=== PATIENT | male | born 1955 | race Asian ===

== ENCOUNTER 2016-11-05 07:30 | Outpatient (CLI) | payer OTHER | END 2016-11-05 23:59 | DX: Z00.00 Encounter for general adult medical examination without abnormal findings (principal); E78.5 Hyperlipidemia, unspecified; Z12.5 Encounter for screening for malignant neoplasm of prostate ==

== ENCOUNTER 2017-11-05 08:08 | Outpatient (CLI) | payer OTHER ==
[2017-11-05 13:07] LABS: ALBUMIN 3.9 g/dL (3.2-5.5); ALBUMIN/GLOBULIN RATIO 1.2 (1.0-2.2); ALKALINE PHOSPHATASE 35 IU/L (42-121); ALT ALANINE AMINOTRANSFERASE 35 IU/L (10-60); AST ASPARTATE AMINOTRANSFERASE 28 IU/L (10-42); BILIRUBIN,TOTAL 0.7 mg/dL (0.2-1.0); BUN - BLOOD UREA NITROGEN 16 mg/dL (6-20); CALCIUM 8.8 mg/dL (8.5-10.3); CARBON DIOXIDE - CO2 29 mmol/L (21-32); CHLORIDE 101 mmol/L (101-111); CHOL/HDL RATIO 3.2 (<5.0); CHOLESTEROL 159 mg/dL; CREATININE 0.6 mg/dL (0.6-1.2); GFR - MDRD 137 (>89); GLUCOSE 108 mg/dL (70-100); HDL CHOLESTEROL 49 mg/dL; LDL CHOLESTEROL,CALCULATED 90 mg/dL; LDL/HDL RATIO 1.8 (<3.6); SODIUM 136 mmol/L (135-145); TOTAL PROTEIN 7.2 g/dL (6.7-8.2); VLDL CHOLESTEROL 20 mg/dL
== END 2017-11-05 08:09 | disposition home or self-care (01) ==
LOC: LAB.WCP 08:08
PROVIDERS: ATTEND Family Medicine
DX: M77.50 Other enthesopathy of unspecified foot and ankle (principal); R60.9 Edema, unspecified; E78.9 Disorder of lipoprotein metabolism, unspecified
CPT/HCPCS: 36415; 80053; 80061; 83721; 84153

== ENCOUNTER 2018-06-27 09:00 | Outpatient (CLI) | payer OTHER ==
[2018-06-27 12:45] LABS: BASOPHILS # (AUTO) 0.1 10^3/uL (0.0-0.1); BASOPHILS % (AUTO) 1.1 %; EOSINOPHILS # (AUTO) 0.5 10^3/uL (0.0-0.7); EOSINOPHILS % (AUTO) 7.1 %; HGB - HEMOGLOBIN 14.1 g/dL (14.0-18.0); LYMPHOCYTES % (AUTO) 28.7 %; MEAN CORPUSCULAR HEMOGLOBIN 31.3 pg (27.0-31.0); MEAN CORPUSCULAR HGB CONC 33.5 g/dL (32.0-36.0); MEAN CORPUSCULAR VOLUME 93.3 fL (80.0-94.0); MEAN PLATELET VOLUME 7.9 fL (7.4-11.4); MONOCYTES # (AUTO) 0.7 10^3/uL (0.0-1.0); MONOCYTES % (AUTO) 9.7 %; NEUTROPHILS # (AUTO) 3.7 10^3/uL (1.5-6.6); NEUTROPHILS % (AUTO) 53.4 %; PLT - PLATELET COUNT 355 10^3/uL (130-450)
[2018-06-27 13:27] LABS: ALBUMIN 4.1 g/dL (3.2-5.5); ALBUMIN/GLOBULIN RATIO 1.4 (1.0-2.2); BILIRUBIN,TOTAL 0.7 mg/dL (0.2-1.0); CALCIUM 9.4 mg/dL (8.5-10.3); CREATININE 0.3 mg/dL (0.6-1.2)
== END 2018-06-27 23:59 | disposition home or self-care (01) ==
LOC: LAB.WCP 09:00
PROVIDERS: ATTEND Family Medicine
DX: R60.9 Edema, unspecified (principal); E66.3 Overweight; E78.5 Hyperlipidemia, unspecified
CPT/HCPCS: 36415; 80053; 85025

== ENCOUNTER 2018-07-25 14:20 | Outpatient (CLI) | payer OTHER ==
[2018-07-25 14:39] LABS: BASOPHILS # (AUTO) 0.1 10^3/uL (0.0-0.1); BASOPHILS % (AUTO) 1.2 %; EOSINOPHILS # (AUTO) 0.4 10^3/uL (0.0-0.7); HGB - HEMOGLOBIN 14.1 g/dL (14.0-18.0); LYMPHOCYTES # (AUTO) 2.7 10^3/uL (1.5-3.5); LYMPHOCYTES % (AUTO) 32.7 %; MEAN CORPUSCULAR HEMOGLOBIN 30.8 pg (27.0-31.0); MEAN CORPUSCULAR HGB CONC 33.3 g/dL (32.0-36.0); MEAN CORPUSCULAR VOLUME 92.7 fL (80.0-94.0); MEAN PLATELET VOLUME 7.2 fL (7.4-11.4); MONOCYTES # (AUTO) 0.9 10^3/uL (0.0-1.0); MONOCYTES % (AUTO) 10.5 %; NEUTROPHILS # (AUTO) 4.1 10^3/uL (1.5-6.6); NEUTROPHILS % (AUTO) 50.6 %; PLT - PLATELET COUNT 336 10^3/uL (130-450); RED BLOOD COUNT 4.56 10^6/uL (4.70-6.10); RED CELL DISTRIBUTION WIDTH 12.7 % (12.0-15.0); WHITE BLOOD COUNT 8.2 x10^3/uL (4.8-10.8)
[2018-07-25 14:50] LABS: ALBUMIN 4.2 g/dL (3.2-5.5); ALBUMIN/GLOBULIN RATIO 1.1 (1.0-2.2); BILIRUBIN,TOTAL 0.7 mg/dL (0.2-1.0); CREATININE 0.6 mg/dL (0.6-1.2)
[2018-07-25] MEDS ORDERED: IOVERSOL 320 100 ML VIAL IVP ONE ×2 (15:28→16:06)
--- NOTE | 2018-07-25 17:02 | CT Report ---
Reason: ABDOMINAL PAIN, RIGHT LOWER QUADRANT, HEMATURIA Procedure Date: 07/25/2018 Accession Number: [id number] / [id number] Procedure: CT - Abdomen/Pelvis W/WO CPT Code: FULL RESULT: EXAM: CT ABDOMEN WITHOUT AND WITH CONTRAST EXAM DATE: 07/25/2018 04:18 PM. HISTORY: ABDOMINAL PAIN, RIGHT LOWER QUADRANT, HEMATURIA. COMPARISON: 12/14/2009. TECHNIQUE: Routine helical CT imaging was performed through the abdomen before and after administration of IV contrast: OPTI 320 100mL. Enteric contrast: No. Reconstruction: Coronal and sagittal. In accordance with CT protocol optimization, one or more of the following dose reduction techniques were utilized for this exam: automated exposure control, adjustment of mA and/or KV based on patient size, or use of iterative reconstructive technique. FINDINGS: ABDOMEN: Right Kidney/Ureter: No calculi. Single ureter with normal anatomic course. No hydronephrosis. No urothelial lesions identified. No renal mass. Left Kidney/Ureter: No calculi. Single ureter with normal anatomic course. No hydronephrosis. No urothelial lesions identified. No renal mass. Bladder: Unremarkable. No obvious lesions or masses. No abnormal thickening seen. Lung Bases: Incompletely included lower lungs are grossly clear. Heart size is within normal limits. No basilar effusions. Liver: Unremarkable. Gallbladder/Bile Ducts: Gallbladder is unremarkable. Biliary tree is normal caliber. Spleen: Unremarkable. Pancreas: Unremarkable. Adrenal Glands: Unremarkable. Peritoneum/Mesentery/Bowel: No free intraabdominal fluid, free air, or collection. No intestinal obstruction or inflammation. Colonic diverticulosis is present. The appendix is within normal limits. Lymph nodes: No mesenteric, periportal, or retroperitoneal lymphadenopathy. Retroperitoneum: Abdominal aorta is nonaneurysmal. Portal vein is patent. Hepatic veins are patent. PELVIS: Prostate ispresent. No pelvic lymphadenopathy. No free intrapelvic fluid. Bones: No suspicious osseous lesions. IMPRESSION: No CT urographic abnormalities. Diverticulosis without diverticulitis. RADIA
== END 2018-07-25 14:21 | disposition home or self-care (01) ==
LOC: LAB 14:20 → DI 14:21
PROVIDERS: ATTEND Family Medicine
DX: R10.31 Right lower quadrant pain (principal); R31.9 Hematuria, unspecified; K57.30 Diverticulosis of large intestine without perforation or abscess without bleeding
CPT/HCPCS: 36415; 74178; 80053; 85025; Q9967

== ENCOUNTER 2018-07-31 14:53 | Outpatient (CLI) | payer OTHER ==
[2018-07-31 19:12] LABS: BILIRUBIN,URINE NEGATIVE (NEGATIVE); GLUCOSE, URINE (UA) NEGATIVE (NEGATIVE); KETONES,URINE (UA) NEGATIVE (NEGATIVE); LEUKOCYTE ESTERASE, URINE NEGATIVE (NEGATIVE); NITRITE,URINE NEGATIVE (NEGATIVE); OCCULT BLOOD,URINE NEGATIVE (NEGATIVE); PROTEIN,URINE NEGATIVE (NEGATIVE); UROBILINOGEN,URINE 0.2 (NORMAL) E.U./dL (NORMAL)
[2018-07-31 19:23] LABS: BACTERIA,URINE Rare /HPF (None Seen); CLARITY,URINE CLEAR (CLEAR); RBC,URINE 0-5 /HPF (0-5); SQUAMOUS EPITHELIAL CELL,UR RARE Squamous (<= Few)
== END 2018-07-31 23:59 | disposition home or self-care (01) ==
LOC: LAB.WCP 14:53
PROVIDERS: ATTEND Family Medicine
DX: R31.9 Hematuria, unspecified (principal)
CPT/HCPCS: 81001

== ENCOUNTER 2018-10-08 16:38 | Outpatient (CLI) | payer OTHER ==
--- NOTE | 2018-10-09 08:48 | XRAY Report ---
Reason: KNEE PAIN,RIGHT Procedure Date: 10/08/2018 Accession Number: [id number] / [id number] Procedure: XR - Knee 2 View RT CPT Code: FULL RESULT: EXAM: RIGHT KNEE RADIOGRAPHY EXAM DATE: 10/08/2018 05:16 PM. CLINICAL HISTORY: Knee pain, right. COMPARISON: None. TECHNIQUE: 3 views. FINDINGS: Bones: Normal. No fractures or bone lesions. Joints: Mild degenerative spurring of the tibial spines and superior and inferior poles of the patella. Small suprapatellar effusion. No dislocation or subluxation. Soft Tissues: Mild anterior soft tissue swelling anterior-inferior to the patella. IMPRESSION: 1. Mild degenerative changes with small suprapatellar effusion. 2. Anterior soft tissue swelling inferior to the patella could indicate prepatellar bursitis. RADIA
== END 2018-10-08 16:39 | disposition home or self-care (01) ==
LOC: DI 16:38
PROVIDERS: ATTEND Family Medicine
DX: M17.11 Unilateral primary osteoarthritis, right knee (principal); M25.461 Effusion, right knee

== ENCOUNTER 2018-11-18 09:12 | Outpatient (CLI) | payer OTHER ==
[2018-11-18 13:06] LABS: BASOPHILS # (AUTO) 0.1 10^3/uL (0.0-0.1); BASOPHILS % (AUTO) 1.2 %; EOSINOPHILS # (AUTO) 0.7 10^3/uL (0.0-0.7); EOSINOPHILS % (AUTO) 8.5 %; LYMPHOCYTES % (AUTO) 36.1 %; MEAN CORPUSCULAR HEMOGLOBIN 30.2 pg (27.0-31.0); MEAN CORPUSCULAR HGB CONC 32.5 g/dL (32.0-36.0); MEAN PLATELET VOLUME 8.3 fL (7.4-11.4); MONOCYTES # (AUTO) 0.8 10^3/uL (0.0-1.0); MONOCYTES % (AUTO) 9.4 %; NEUTROPHILS # (AUTO) 3.8 10^3/uL (1.5-6.6); NEUTROPHILS % (AUTO) 44.8 %; PLT - PLATELET COUNT 343 10^3/uL (130-450); RED BLOOD COUNT 4.63 10^6/uL (4.70-6.10); RED CELL DISTRIBUTION WIDTH 12.6 % (12.0-15.0); WHITE BLOOD COUNT 8.4 x10^3/uL (4.8-10.8)
[2018-11-18 13:16] LABS: ALBUMIN/GLOBULIN RATIO 1.1 (1.0-2.2); ALKALINE PHOSPHATASE 45 IU/L (42-121); ALT ALANINE AMINOTRANSFERASE 29 IU/L (10-60); AST ASPARTATE AMINOTRANSFERASE 27 IU/L (10-42); BILIRUBIN,TOTAL 0.9 mg/dL (0.2-1.0); BUN - BLOOD UREA NITROGEN 14 mg/dL (6-20); CALCIUM 9.4 mg/dL (8.5-10.3); CARBON DIOXIDE - CO2 30 mmol/L (21-32); CHLORIDE 98 mmol/L (101-111); CHOL/HDL RATIO 3.1 (<5.0); CHOLESTEROL 183 mg/dL; CREATININE 0.7 mg/dL (0.6-1.2); GFR - MDRD 115 (>89); GLUCOSE 104 mg/dL (70-100); HDL CHOLESTEROL 59 mg/dL; LDL CHOLESTEROL,CALCULATED 109 mg/dL; LDL/HDL RATIO 1.8 (<3.6); SODIUM 137 mmol/L (135-145); TOTAL PROTEIN 7.5 g/dL (6.7-8.2); VLDL CHOLESTEROL 15 mg/dL
[2018-11-18 13:19] LABS: CREATININE,URINE 138.3 mg/dL; MICROALBUM/CREATININE RATIO,UR 2.9 ug/mg (<30.0); MICROALBUMIN,URINE 0.4 mg/dL (0-300.0)
[2018-11-18 13:27] LABS: HB2 TOTAL 15.3 g/dL; HEMOGLOBIN A1C 0.48 g/dL
== END 2018-11-18 09:13 | disposition home or self-care (01) ==
LOC: LAB.WCP 09:12
PROVIDERS: ATTEND Family Medicine
DX: E78.5 Hyperlipidemia, unspecified (principal); E66.3 Overweight
CPT/HCPCS: 36415; 80053; 80061; 82043; 82570; 83036; 83721; 84443; 85025

== ENCOUNTER 2020-06-25 12:39 | Outpatient (CLI) | payer OTHER ==
--- NOTE | 2020-06-25 14:57 | Ultrasound Report ---
PROCEDURE: Ext Limited Non Vascular INDICATIONS: L LEG PAIN TECHNIQUE: Real-time scanning was performed of the area of pain along the posterior lateral catheter , with image documentation. COMPARISON: None. FINDINGS: Underlying the area of palpable abnormality is a circumscribed hypoechoic mass with subtle internal vascularity connected to multiple superficial subcutaneous vessels. This measures 1.1 x 0.7 x 0.9 cm. There are multiple prominent superficial veins suggestive of varices noted adjacently. IMPRESSION: Findings most consistent with a focal superficial venous thrombosis measuring up to 1.1 cm in greates t diameter. Lower extremity varices. Reviewed by: Ras Carmona DO on 06/25/2020 1:56 PM [facility] Approved by: Ras Carmona DO on 06/25/2020 1:56 PM [place] Station ID: [id number]
--- NOTE | 2020-06-25 15:19 | XRAY Report ---
PROCEDURE: Foot 2 View LT INDICATIONS: L LEG PAIN TECHNIQUE: 2 views of the foot were acquired. COMPARISON: None FINDINGS: Bones: No fractures or dislocations. No suspicious bony lesions. Tibiotalar degenerative changes. Mild degenerative changes of the first metatarsophalangeal joint. Soft tissues: No tibiotalar joint effusion. Spurring of the calcaneus at the plantar fascial and Ach illes insertions. Mild soft tissue swelling of the ankle and foot. IMPRESSION: No acute osseous abnormality. Reviewed by: Ras Carmona DO on 06/25/2020 2:18 PM [place] Approved by: Ras Carmona DO on 06/25/2020 2:18 PM [place] Station ID: [id number]
--- NOTE | 2020-06-25 15:22 | XRAY Report ---
PROCEDURE: Knee 3 View LT INDICATIONS: L LEG PAIN TECHNIQUE: Frontal standing view of both knees along with lateral and sunrise views of the left knee were performed. COMPARISON: None. FINDINGS: Bones: No fractures or dislocations. No suspicious bony lesions. There is joint space loss of both knees most prominently in the medially. There is tricompartmental osteophytosis. Soft tissues: No joint effusion. No suspicious soft tissue calcifications. Enthesophyte formation along the superior pole of the patella and at the tibial tuberosity. Surgical clips are noted within the lower thigh. IMPRESSION: Moderate tricompartment osteophytosis. No acute osseous abnormality. Reviewed by: Ras Carmona DO on 06/25/2020 2:20 PM [place] Approved by: Ras Carmona DO on 06/25/2020 2:20 PM [facility] Station ID: [id number]
--- NOTE | 2020-06-25 15:24 | XRAY Report ---
PROCEDURE: Ankle 3 View LT INDICATIONS: L LEG PAIN TECHNIQUE: 3 views of the ankle were acquired. COMPARISON: None FINDINGS: Bones: No fractures or dislocations. Ankle mortise is normally aligned. No suspicious bony lesions . Mild spurring of the tibiotalar joint. Soft tissues: No tibiotalar joint effusion. Achilles tendon appears normal. Spurring of the calcan eus at the Achilles and plantar fascial insertion. There is mild diffuse soft tissue swelling. IMPRESSION: Mild degenerative changes of the ankle without acute osseous abnormality. Mild diffuse soft tissue swelling. Reviewed by: Ras Carmona DO on 06/25/2020 2:22 PM [facility] Approved by: Ras Carmona DO on 06/25/2020 2:22 PM [facility] Station ID: [id number]
--- NOTE | 2020-06-25 15:25 | XRAY Report ---
PROCEDURE: Tib/Fib LT INDICATIONS: L LEG PAIN TECHNIQUE: 2 views of the tibia and fibula were acquired. COMPARISON: None FINDINGS: Bones: No fractures or dislocations. No suspicious bony lesions. Degenerative changes of the ankle and knee is incompletely evaluated. Enthesophyte formation is noted at the superior pole of the blum la and at the tibial tuberosity. There is mild diffuse soft tissue swelling/edema. Findings suggestiv e of varices. Soft tissues: No suspicious soft tissue calcifications or masses. IMPRESSION: No acute osseous abnormality. Diffuse soft tissue swelling/edema and findings suggestive of varices. Reviewed by: Ras Carmona DO on 06/25/2020 2:24 PM [place] Approved by: Ras Carmona DO on 06/25/2020 2:24 PM [facility] Station ID: [id number]
== END 2020-06-25 12:40 | disposition home or self-care (01) ==
LOC: DI 12:39
PROVIDERS: ATTEND Family Medicine
DX: M79.605 Pain in left leg (principal); R22.42 Localized swelling, mass and lump, left lower limb; M25.762 Osteophyte, left knee; M19.072 Primary osteoarthritis, left ankle and foot
CPT/HCPCS: 76882

== ENCOUNTER 2020-11-11 07:16 | Outpatient (CLI) | payer OTHER ==
--- NOTE | 2020-11-11 08:38 | XRAY Report ---
PROCEDURE: Knee Standing LT INDICATIONS: ARTHRITIS, LEFT KNEE TECHNIQUE: 4 views of the left knee, and 1 views of the right knee. COMPARISON: None. FINDINGS: Bones: No acute fractures or dislocations. No suspicious bony lesions. Joint spaces appear reduced with weightbearing best seen at the medial compartment where moderately severe narrowing is present and present only to a minimal degree at the lateral compartment. At the patellofemoral joint the late ral facet shows mild narrowing also. At the right knee the degree of joint space narrowing is slightl y less. Soft tissues: No knee joint effusions. No suspicious soft tissue calcification. IMPRESSION: Moderately severe medial compartment left knee osteoarthritic joint space narrowing. No effusion or l oose body seen. Mild lateral facet patellofemoral joint space narrowing is present on the left also. Slightly less osteoarthritis is present at the right knee on the single frontal weightbearing view. No trauma. Reviewed by: Song Lancaster MD on 11/11/2020 8:37 AM PDT Approved by: Song Lancaster MD on 11/11/2020 8:37 AM PDT Station ID: [id number]
== END 2020-11-11 23:59 | disposition home or self-care (01) ==
LOC: DI.N 07:16
PROVIDERS: ATTEND Orthopaedic Surgery
DX: M17.0 Bilateral primary osteoarthritis of knee (principal)

== ENCOUNTER 2020-12-05 10:57 | Day surgery (SDC) | payer OTHER ==
[2020-12-05] MEDS ORDERED: LACTATED RINGERS 1,000 ML IV ONE ×2 (11:40→13:20)
[2020-12-05] MEDS ORDERED: MIDAZOLAM 2 MG/2 ML VIAL ONE (12:07)
[2020-12-05] MEDS ORDERED: fentaNYL 250 MCG/5 ML VIAL ONE (12:07)
--- NOTE | 2020-12-05 12:24 | HISTORY & PHYSICAL EXAMINATION ---
Chief Complaint - Chief Complaint Chief Complaint: Due for colon cancer screening History of Present Illness - History Obtained From Records Reviewed: yes History obtained from: pt Exam Limitations: none - History of Present Illness HPI Comment/Other: He last had colon cancer screening in 2009. Diverticulosis seen. No polyps History - Past Medical History Cardiovascular: reports: High cholesterol MRSA Hx?: No Meds/Allgy - Home Medications Home Medications: Ambulatory Orders Medication Instructions Recorded Confirmed Simvastatin 20 mg PO DAILY 02/01/15 12/05/20 Furosemide [Lasix] 20 mg PO BID 12/02/20 12/05/20 Potassium Chloride 20 meq PO BID 12/02/20 12/02/20 - Allergies Allergies/Adverse Reactions: Allergies Allergy/AdvReac Type Severity Reaction Status Date / Time amoxicillin [From Augmentin] AdvReac Hives Verified 12/05/20 11:24 clavulanic acid AdvReac Hives Verified 12/05/20 11:24 [From Augmentin] Latex, Natural Rubber AdvReac Unknown Verified 12/05/20 11:11 naproxen [From Naprosyn] AdvReac Unknown Verified 12/05/20 11:24 Review of Systems - Constitutional Constitutional: reports: Fatigue (10 pt ros as above otherwise unremarkable) Exam - Vital Signs Reviewed Vital Signs: Yes Vital Signs: Vital Signs x48h Temp Pulse Resp BP Pulse Ox 12/05/20 11:12 36.2 C L 74 16 138/78 H 98 - Physical Exam General Appearance: positive: No acute distress, Alert Eyes Bilateral: positive: PERRL, EOMI ENT: positive: No signs of dehydration Neck: positive: No JVD Respiratory: positive: Breath sounds nml Cardiovascular: positive: Regular rate & rhythm Abdomen: positive: Non-tender, No distention Neurologic/Psychiatric: positive: Oriented x3 Conclusion/Plan - Problem List (1) Colon cancer screening Conclusion/Plan: plan colonoscopy. parq held and consent obtained
[2020-12-05 13:47] VITALS: BP 105/61
== END 2020-12-05 10:58 | disposition home or self-care (01) ==
LOC: SDS 10:57
PROVIDERS: ATTEND Surgery
PROC: 0DBM8ZZ Excision of Descending Colon, Via Natural or Artificial Opening Endoscopic (ICD-10-PCS; 2020-12-05)
PROC: 0DBL8ZZ Excision of Transverse Colon, Via Natural or Artificial Opening Endoscopic (ICD-10-PCS; 2020-12-05)
PROC: 0DBM8ZX Excision of Descending Colon, Via Natural or Artificial Opening Endoscopic, Diagnostic (ICD-10-PCS; principal; 2020-12-05 12:30)
DX: Z12.11 Encounter for screening for malignant neoplasm of colon (principal); D12.3 Benign neoplasm of transverse colon; D12.4 Benign neoplasm of descending colon; K57.30 Diverticulosis of large intestine without perforation or abscess without bleeding
CPT/HCPCS: 45380; 45385; J3010; J7120

== ENCOUNTER 2021-06-28 08:00 | Outpatient (CLI) | payer SELFPAY ==
[2021-06-28 12:10] LABS: BASOPHILS # (AUTO) 0.1 10^3/uL (0.0-0.1); BASOPHILS % (AUTO) 1.4 %; EOSINOPHILS # (AUTO) 0.7 10^3/uL (0.0-0.7); EOSINOPHILS % (AUTO) 9.3 %; HCT - HEMATOCRIT 43.6 % (42.0-52.0); HGB - HEMOGLOBIN 14.1 g/dL (14.0-18.0); LYMPHOCYTES # (AUTO) 2.5 10^3/uL (1.5-3.5); LYMPHOCYTES % (AUTO) 32.5 %; MEAN CORPUSCULAR HEMOGLOBIN 30.9 pg (27.0-31.0); MEAN CORPUSCULAR HGB CONC 32.3 g/dL (32.0-36.0); MEAN CORPUSCULAR VOLUME 95.6 fL (80.0-94.0); MEAN PLATELET VOLUME 9.9 fL (7.4-11.4); MONOCYTES # (AUTO) 0.7 10^3/uL (0.0-1.0); MONOCYTES % (AUTO) 8.9 %; NEUTROPHILS # (AUTO) 3.6 10^3/uL (1.5-6.6); NEUTROPHILS % (AUTO) 47.5 %; PLT - PLATELET COUNT 359 10^3/uL (130-450); RED BLOOD COUNT 4.56 10^6/uL (4.70-6.10); RED CELL DISTRIBUTION WIDTH 12.4 % (12.0-15.0); WHITE BLOOD COUNT 7.6 x10^3/uL (4.8-10.8)
[2021-06-28 12:58] LABS: ALBUMIN 3.9 g/dL (3.2-5.5); ALBUMIN/GLOBULIN RATIO 1.1 (1.0-2.2); ALKALINE PHOSPHATASE 47 IU/L (42-121); ALT ALANINE AMINOTRANSFERASE 47 IU/L (10-60); AST ASPARTATE AMINOTRANSFERASE 34 IU/L (10-42); BILIRUBIN,TOTAL 1.1 mg/dL (0.2-1.0); BUN - BLOOD UREA NITROGEN 12 mg/dL (6-20); CALCIUM 9.3 mg/dL (8.5-10.3); CARBON DIOXIDE - CO2 31 mmol/L (21-32); CHLORIDE 101 mmol/L (101-111); CHOL/HDL RATIO 3.2 (<5.0); CHOLESTEROL 190 mg/dL; CREATININE 0.6 mg/dL (0.6-1.2); GFR - MDRD 136 (>89); GLUCOSE 104 mg/dL (70-100); HDL CHOLESTEROL 59 mg/dL; LDL CHOLESTEROL,CALCULATED 108 mg/dL; LDL/HDL RATIO 1.8 (<3.6); POTASSIUM 4.2 mmol/L (3.5-5.0); SODIUM 141 mmol/L (135-145); TOTAL PROTEIN 7.3 g/dL (6.7-8.2); TRIGLYCERIDES 114 mg/dL; VLDL CHOLESTEROL 23 mg/dL
[2021-06-28 13:13] LABS: THYROID STIMULATING HORMONE 2.77 uIU/mL (0.34-5.60)
[2021-06-28 13:14] LABS: FREE T3 3.35 pg/mL (2.5-3.9)
[2021-06-28 13:15] LABS: FREE T4 (FREE THYROXINE) 1.02 ng/dL (0.58-1.64)
== END 2021-06-28 23:59 | disposition home or self-care (01) ==
LOC: LAB.WCP 08:00
PROVIDERS: ATTEND Family Medicine
DX: R60.9 Edema, unspecified (principal); E78.5 Hyperlipidemia, unspecified
CPT/HCPCS: 36415; 80053; 80061; 83721; 84153; 84439; 84443; 84481; 85025

== ENCOUNTER 2022-11-23 08:53 | Outpatient (CLI) | payer MEDICARE ==
[2022-11-23 12:29] LABS: BASOPHILS # (AUTO) 0.1 10^3/uL (0.0-0.1); BASOPHILS % (AUTO) 1.8 %; EOSINOPHILS # (AUTO) 0.6 10^3/uL (0.0-0.7); EOSINOPHILS % (AUTO) 8.3 %; HCT - HEMATOCRIT 42.7 % (42.0-52.0); HGB - HEMOGLOBIN 13.5 g/dL (14.0-18.0); LYMPHOCYTES # (AUTO) 2.6 10^3/uL (1.5-3.5); LYMPHOCYTES % (AUTO) 36.4 %; MEAN CORPUSCULAR HEMOGLOBIN 30.2 pg (27.0-31.0); MEAN CORPUSCULAR HGB CONC 31.6 g/dL (32.0-36.0); MEAN CORPUSCULAR VOLUME 95.5 fL (80.0-94.0); MEAN PLATELET VOLUME 9.7 fL (7.4-11.4); MONOCYTES # (AUTO) 0.8 10^3/uL (0.0-1.0); MONOCYTES % (AUTO) 10.4 %; NEUTROPHILS # (AUTO) 3.1 10^3/uL (1.5-6.6); NEUTROPHILS % (AUTO) 42.7 %; PLT - PLATELET COUNT 363 10^3/uL (130-450); RED BLOOD COUNT 4.47 10^6/uL (4.70-6.10); RED CELL DISTRIBUTION WIDTH 12.3 % (12.0-15.0); WHITE BLOOD COUNT 7.2 x10^3/uL (4.8-10.8)
[2022-11-23 12:53] LABS: ALBUMIN 4.1 g/dL (3.2-5.5); ALBUMIN/GLOBULIN RATIO 1.3 (1.0-2.2); ALKALINE PHOSPHATASE 42 IU/L (42-121); ALT ALANINE AMINOTRANSFERASE 34 IU/L (10-60); AST ASPARTATE AMINOTRANSFERASE 26 IU/L (10-42); BUN - BLOOD UREA NITROGEN 15 mg/dL (6-20); CALCIUM 8.9 mg/dL (8.5-10.3); CARBON DIOXIDE - CO2 29 mmol/L (21-32); CHLORIDE 104 mmol/L (101-111); CHOL/HDL RATIO 2.8 (<5.0); CHOLESTEROL 188 mg/dL; CREATININE 0.7 mg/dL (0.6-1.2); GFR - MDRD 113 (>89); GLUCOSE 96 mg/dL (70-100); HDL CHOLESTEROL 66 mg/dL; LDL CHOLESTEROL,CALCULATED 102 mg/dL; LDL/HDL RATIO 1.5 (<3.6); POTASSIUM 3.9 mmol/L (3.5-5.0); SODIUM 139 mmol/L (135-145); TOTAL PROTEIN 7.3 g/dL (6.7-8.2); TRIGLYCERIDES 102 mg/dL; VLDL CHOLESTEROL 20 mg/dL
== END 2022-11-23 08:54 | disposition home or self-care (01) ==
LOC: LAB.N 08:53
PROVIDERS: ATTEND Specialist
DX: Z00.00 Encounter for general adult medical examination without abnormal findings (principal)
CPT/HCPCS: 36415; 80053; 80061; 83721; 85025

== ENCOUNTER 2022-11-28 13:04 | Outpatient (CLI) | payer MEDICARE ==
[2022-11-28 17:54] LABS: % IRON SATURATION 28 % (20-50); IRON 100 ug/dL (45-182); TOTAL IRON BINDING CAPACITY 358 ug/dL (250-450); TRANSFERRIN 256 mg/dL (180-329)
[2022-11-28 18:10] LABS: FERRITIN 98.7 ng/mL (23.9-336.2)
== END 2022-11-28 13:05 | disposition home or self-care (01) ==
LOC: LAB.N 13:04
PROVIDERS: ATTEND Physician Assistant
DX: D53.9 Nutritional anemia, unspecified (principal)
CPT/HCPCS: 36415; 82607; 82728; 82746; 83540; 84466

== ENCOUNTER 2023-11-18 08:54 | Outpatient (CLI) | payer MEDICARE ==
[2023-11-18 12:27] LABS: BASOPHILS # (AUTO) 0.2 10^3/uL (0.0-0.1); BASOPHILS % (AUTO) 2.2 %; EOSINOPHILS # (AUTO) 0.6 10^3/uL (0.0-0.7); EOSINOPHILS % (AUTO) 8.2 %; HCT - HEMATOCRIT 42.1 % (42.0-52.0); HGB - HEMOGLOBIN 13.6 g/dL (14.0-18.0); LYMPHOCYTES # (AUTO) 2.2 10^3/uL (1.5-3.5); LYMPHOCYTES % (AUTO) 31.6 %; MEAN CORPUSCULAR HEMOGLOBIN 30.8 pg (27.0-31.0); MEAN CORPUSCULAR HGB CONC 32.3 g/dL (32.0-36.0); MEAN CORPUSCULAR VOLUME 95.2 fL (80.0-94.0); MEAN PLATELET VOLUME 10.2 fL (7.4-11.4); MONOCYTES # (AUTO) 0.8 10^3/uL (0.0-1.0); MONOCYTES % (AUTO) 10.8 %; NEUTROPHILS # (AUTO) 3.3 10^3/uL (1.5-6.6); NEUTROPHILS % (AUTO) 46.9 %; PLT - PLATELET COUNT 345 10^3/uL (130-450); RED BLOOD COUNT 4.42 10^6/uL (4.70-6.10); RED CELL DISTRIBUTION WIDTH 12.5 % (12.0-15.0); WHITE BLOOD COUNT 6.9 x10^3/uL (4.8-10.8)
[2023-11-18 13:19] LABS: ALBUMIN 4.4 g/dL (3.2-5.5); ALBUMIN/GLOBULIN RATIO 1.5 (1.0-2.2); ALKALINE PHOSPHATASE 48 IU/L (42-121); ALT ALANINE AMINOTRANSFERASE 35 IU/L (10-60); AST ASPARTATE AMINOTRANSFERASE 28 IU/L (10-42); BILIRUBIN,TOTAL 0.7 mg/dL (0.2-1.0); BUN - BLOOD UREA NITROGEN 11 mg/dL (6-20); CALCIUM 9.9 mg/dL (8.5-10.3); CARBON DIOXIDE - CO2 31 mmol/L (21-32); CHLORIDE 101 mmol/L (101-111); CHOL/HDL RATIO 2.4 (<5.0); CHOLESTEROL 155 mg/dL; CREATININE 0.6 mg/dL (0.6-1.3); GFR - MDRD 135 (>89); GLUCOSE 110 mg/dL (74-104); HDL CHOLESTEROL 64 mg/dL; LDL CHOLESTEROL,CALCULATED 65 mg/dL; POTASSIUM 4.1 mmol/L (3.5-4.5); SODIUM 137 mmol/L (135-145); TOTAL PROTEIN 7.4 g/dL (6.4-8.9); TRIGLYCERIDES 130 mg/dL (48-352); VLDL CHOLESTEROL 26 mg/dL
== END 2023-11-18 08:55 | disposition home or self-care (01) ==
LOC: LAB.N 08:54
PROVIDERS: ATTEND Physician Assistant Medical
DX: E78.5 Hyperlipidemia, unspecified (principal); Z12.5 Encounter for screening for malignant neoplasm of prostate; D53.9 Nutritional anemia, unspecified
CPT/HCPCS: 36415; 80053; 80061; 85025; G0103; 83721; 84153